=== PATIENT | female | born 1985 | race Caucasian/White ===

== ENCOUNTER 2021-01-09 09:00 | Outpatient (RCR) | payer BC, SELFPAY ==
[2021-01-09 09:16] VITALS: BMI 33.3
[2021-01-09 09:19] VITALS: BMI 33.3
== END 2021-01-19 12:14 | disposition home or self-care (01) ==
LOC: ANHDMC 09:00
PROVIDERS: Visit Provider Student in an Organized Health Care Education/Training Program
DX: O24.319 Unspecified pre-existing diabetes mellitus in pregnancy, unspecified trimester (principal); Z71.89 Other specified counseling; Z71.3 Dietary counseling and surveillance
CPT/HCPCS: 97802; G0108

== ENCOUNTER 2021-02-14 09:00 | Outpatient (RCR) | payer BC, SELFPAY ==
[2021-01-03 16:48] VITALS: BP 119/70; PULSE 91
[2021-01-10 09:28] VITALS: BP 120/71; PULSE 87
[2021-01-24 09:31] VITALS: BP 113/73; PULSE 84
[2021-01-31 09:28] VITALS: BP 109/75; PULSE 78
[2021-02-07 09:34] VITALS: BP 118/76; PULSE 87
[2021-02-14 09:30] VITALS: BP 120/71; PULSE 65
== END 2021-02-26 10:35 | disposition home or self-care (01) ==
LOC: ANHOBOP 09:00
PROVIDERS: Visit Provider Student in an Organized Health Care Education/Training Program
DX: O24.419 Gestational diabetes mellitus in pregnancy, unspecified control (principal); O09.513 Supervision of elderly primigravida, third trimester; Z3A.32 32 weeks gestation of pregnancy; Z3A.33 33 weeks gestation of pregnancy; Z3A.34 34 weeks gestation of pregnancy; Z3A.35 35 weeks gestation of pregnancy; Z3A.36 36 weeks gestation of pregnancy; Z3A.37 37 weeks gestation of pregnancy; Z3A.38 38 weeks gestation of pregnancy
CPT/HCPCS: 59025

== ENCOUNTER 2021-02-21 07:11 | Inpatient (IN) | payer BC, SELFPAY ==
[2021-02-21] VITALS (51 sets, daily range): BP systolic 93–153; BP diastolic 55–92; PULSE 56–171; RESP 16–18; TEMP 36.4–37.1; O2SAT 96–100; BMI 33.0
[2021-02-21 07:56] LABS: Basophils Absolute Auto 0.1 K/mm3 (0.0-0.1); Basophils Percent Auto 0.5 % (0.2-1.2); Eosinophils Absolute Auto 0.1 K/mm3 (0-0.3); Hematocrit 36.2 % (37.0-47.0); Hemoglobin 11.5 g/dL (12.0-15.0); Immature Granulocyte Absolute 0.09 K/mm3 (0.00-0.031); Immature Granulocyte Percent A 0.9 % (0-0.5); Lymphocytes Absolute Auto 3.83 K/mm3 (0.9-3.2); Lymphocytes Percent Auto 38.1 % (18.3-44.2); Mean Corpuscular HGB Conc 31.8 g/dl (32-36); Mean Corpuscular Hemoglobin 26.4 pg (26-34); Mean Platelet Volume 11.9 fl (7.4-10.4); Monocytes Absolute Auto 0.9 K/mm3 (0.1-0.6); Monocytes Percent Auto 9.1 % (2.6-8.5); Neutrophils Absolute Auto 5.1 K/mm3 (1.3-6.7); Neutrophils Percent Auto 50.4 % (45.5-73.1); Platelet Count Result 267 k/mm3 (150-375); Red Blood Count 4.36 M/mm3 (4.2-5.4); Red Cell Distribution Width 16.2 % (11.5-14.5); White Blood Count 10.1 K/mm3 (4.5-10.0)
[2021-02-21] MEDS: LACTATED RINGERS 1,000 ML 125 ML IV CONT ×2 (08:01→11:20)
[2021-02-21] MEDS: OXYTOCIN 30 UNITS/NS 500 ML 30 UNITS/500 ML BAG IV CONT (08:02)
--- NOTE | 2021-02-21 08:07 | LDADM ---
This patient, Briseyda Mendez, was admitted to Labor/Delivery/Recovery 104 on 02/21/21 at 07:11. Plans for labor, pain management and were discussed with patient. Patient/family oriented to hospital policies and general routines including ID bracelet, bed and alarms, visiting hours, pain management, procedures, bathroom and other care routines, personal items, smoking policy, room service/diet and guest tray routines, security routines, and visiting hours. Patient/Family are encouraged to report perceived risks to care and to ask questions if they do not understand what they are told or what they should do. See OBIX for further documentation.
[2021-02-21] MEDS: ONDANSETRON INJ 4 MG/2 ML VIAL IV PUSH (08:18)
[2021-02-21 09:45] LABS: Glucose Point of Care 69 mg/dl (65-105)
--- NOTE | 2021-02-21 10:16 | PM.IMHP ---
H&P: HPI History of Present Illness Date/Time: 02/21/21 10:16 Chief Complaint: intrauterine at term gestational diabetes advanced maternal age Narrative: 35 yo at 39w1d who presents for IOL due to gestational diabetes. Pt diabetes has been well controlled with diet and exercise. She has had routine testing and normal growth US. Review of Systems Cardiovascular: Cardiovascular: Denies chest pain, Denies leg edema, Denies palpitations, Denies dyspnea and Denies dyspnea on exertion Respiratory: Respiratory: Denies cough, Denies dyspnea and Denies dyspnea on exertion Gastrointestinal: Gastrointestinal: Denies abdominal pain, Denies constipation, Denies diarrhea, Denies nausea and Denies vomiting Genitourinary: Genitourinary: Denies hematuria, Denies urinary frequency, Denies dysuria, Denies pelvic pain, Denies urinary incontinence and Denies vaginal discharge Neurologic: Reports system reviewed and no additional complaints, except as documented Psychiatric: Psychiatric: Reports no additional psychiatric complaints Endocrine: Endocrine: Denies palpitations PMFSH Family History Family History (Updated 02/03/21 @ 15:00 by Tri Yeh RN) Father Hypertension Mother Family history of diabetes mellitus in first degree relative Grandparent Family history of diabetes mellitus in first degree relative Cancer S/P CABG x 4 S/P CABG x 2 Hypertension Social History Social History Smoking status: Never smoker Alcohol intake: current Substance use: never Spiritual care concerns: No Meds Home Medications and Allergies Home Medications Medication Instructions Recorded Confirmed Type ferrous sulfate 325 mg PO DAILY 02/03/21 02/03/21 History ondansetron HCl [Zofran] 4 mg PO Q8H PRN 02/03/21 02/03/21 History prenat.vits,shelly,eda-oplp-[id number] 1 tablet PO DAILY 02/03/21 02/03/21 History [ #2] promethazine [Phenergan] 12.5 mg PO Q6H PRN 02/03/21 02/03/21 History Allergies Allergy/AdvReac Type Severity Reaction Status Date / Time No Known Drug Allergies Allergy Verified 08/17/12 19:44 Vital Signs Vital Signs - 24 hr 02/21/21 07:47 02/21/21 08:00 02/21/21 08:30 Pulse Rate 81 81 83 Blood Pressure 117/89 118/85 109/84 02/21/21 09:00 02/21/21 09:41 02/21/21 10:00 Pulse Rate 75 69 60 Blood Pressure 127/85 120/84 128/84 Exam Const: General: no acute distress Eyes: EOM: EOMs intact bilaterally Neck: Neck: supple Thyroid: thyroid normal Chest: Breast/axilla inspection: normal inspection of the breasts Breast/axilla palpation: normal palpation of the breasts, normal palpation of the axillae and no axillary lymphadenopathy Resp: Effort & Inspection: normal respiratory effort Auscultation: clear to auscultation bilaterally Cardio: Rate: regular rate Rhythm: regular rhythm GI: Inspection: non-distended GI Palp: Yes Soft to palpation, No Tenderness to palpation present (GI), No Guarding due to palpation present (GI) and Yes Other GI palpation findings present (Gravid) Auscultation: normal bowel sounds : General: No bladder normal to palpation External Female Exam: normal external appearance OB/external & speculum: external exam normal; No vaginal bleeding Manual OB Exam: dilated 4 cm, effaced 75% and station -2 Skin: General skin exam: normal color and no rashes or lesions noted Neuro: Cognition (Neuro): normal cognition Speech: normal speech Extrem: General: normal to inspection and no edema Psych: Mental Status: mental status grossly normal Affect: normal affect H&P: Results Labs Labs: Short CBC 02/21/21 Range/Units 07:48 WBC 10.1 H (4.5-10.0) K/mm3 Hgb 11.5 L (12.0-15.0) g/dL Hct 36.2 L (37.0-47.0) % Plt Count 267 (150-375) k/mm3 Assessment and Plan Assessment and plan (1) Supervision of high risk , unspecified, third trimester: Code(s): O09.93 - Supervision of high risk ,
[2021-02-21] MEDS: fentaNYL CITRATE INJ (*CRX) 100 MCG/2 ML VIAL IV PUSH (11:03)
--- NOTE | 2021-02-21 11:11 | WPDANESEPP ---
Anes - Eval Pre Procedure Procedure: labor pain management Date/Time: 02/21/21 11:11 Surgeon: levon Preop Diagnosis: pain during labor Pre Op Diagnosis: iol Patient Data Age: 35 Gender: F Height: 1.65 m Weight: 90 kg Last Vital Signs Pulse 71 02/21/21 11:00 BP 143/82 H 02/21/21 11:00 Allergies Allergy/AdvReac Type Severity Reaction Status Date / Time No Known Drug Allergies Allergy Verified 08/17/12 19:44 Home Medications Medication Instructions Recorded Confirmed Type ferrous sulfate 325 mg PO DAILY 02/03/21 02/03/21 History ondansetron HCl [Zofran] 4 mg PO Q8H PRN 02/03/21 02/03/21 History prenat.vits,shelly,oqy-qkrl-yhbvm 1 tablet PO DAILY 02/03/21 02/03/21 History [ #2] promethazine [Phenergan] 12.5 mg PO Q6H PRN 02/03/21 02/03/21 History Laboratory Tests 02/21/21 02/21/21 02/21/21 07:48 07:48 07:48 WBC 10.1 K/mm3 H K/mm3 (4.5-10.0) RBC 4.36 M/mm3 M/mm3 (4.2-5.4) Hgb 11.5 g/dL L g/dL (12.0-15.0) Hct 36.2 % L % (37.0-47.0) MCV 83.0 fl fl (80-100) MCH 26.4 pg pg (26-34) MCHC 31.8 g/dl L g/dl (32-36) RDW 16.2 % H % (11.5-14.5) Plt Count 267 k/mm3 k/mm3 (150-375) MPV 11.9 fl H fl (7.4-10.4) Immature Gran % (Auto) 0.9 % H % (0-0.5) Neut % (Auto) 50.4 % % (45.5-73.1) Lymph % (Auto) 38.1 % % (18.3-44.2) [place] % (Auto) 9.1 % H % (2.6-8.5) Eos % (Auto) 1.0 % % (0-4.4) Baso % (Auto) 0.5 % % (0.2-1.2) Lymph # (Auto) 3.83 K/mm3 H K/mm3 (0.9-3.2) [place] # (Auto) 0.9 K/mm3 H K/mm3 (0.1-0.6) Eos # (Auto) 0.1 K/mm3 K/mm3 (0-0.3) Baso # (Auto) 0.1 K/mm3 K/mm3 (0.0-0.1) Abs Immat Gran (auto) 0.09 K/mm3 H K/mm3 (0.00-0.031) Absolute Neuts (auto) 5.1 K/mm3 K/mm3 (1.3-6.7) Absolute Nucleated RBC 0.0 K/mm3 K/mm3 (0.0-0.012) Nucleated RBC % 0.0 % % (0.0-0.2) POC Capillary Glucose RPR Pending Blood Type B Positive Antibody Screen Negative 02/21/21 09:42 WBC RBC Hgb Hct MCV MCH MCHC RDW Plt Count MPV Immature Gran % (Auto) Neut % (Auto) Lymph % (Auto) [place] % (Auto) Eos % (Auto) Baso % (Auto) Lymph # (Auto) [place] # (Auto) Eos # (Auto) Baso # (Auto) Abs Immat Gran (auto) Absolute Neuts (auto) Absolute Nucleated RBC Nucleated RBC % POC Capillary Glucose 69 mg/dl mg/dl (65-105) RPR Blood Type Antibody Screen : gestational age (edc 02/27/21) Patient hx anesthesia problems: none Family hx anesthesia problems: none Results Review: All pre-operative results and documents have been reviewed as part of the pre-operative evaluation. [facility] Family History Family History Father Hypertension Mother Family history of diabetes mellitus in first degree relative Grandparent Family history of diabetes mellitus in first degree relative Cancer S/P CABG x 4 S/P CABG x 2 Hypertension Social History Social History Smoking status: Never smoker Alcohol intake: current Substance use: never Spiritual care concerns: No Exam Day of Procedure 02/21/21 11:11 Patient weight: obese Neurological: alert and oriented
--- NOTE | 2021-02-21 12:28 | PM.OBPRVD ---
OB - Delivery Note Procedure Procedure: FHT were noted to be in the 70-80s during pushing. FHT remained bradycardic. The skull was partially delivered through the introitus. The [place] vacuum was applied to the skull, 2 cm anterior to the posterior fontanelle. Gentle traction was applied with the next contraction. The was delivered with one contractions. The vacuum was removed on the perineum. The fetus was delivered atraumatically and placed on the maternal abdomen. The fetus was vigorous with good cry with minimal stimulation. The cord was clamped and cut after 1 minute of life. The cord was double clamped and cut and a segment of cord was collected for cord gases. Cord blood was collected for blood type and Coomb's testing. The placenta delivered spontaneously and was noted to be intact. The perineum was inspected and there was a 1st degree perineal laceration. The laceration was repaired with 3-0 vicryl in the usual fashion. The uterus was firm and good hemostasis was noted. The patient and fetus were stable in the delivery room. events: Gestational Diabetes Intrapartal events: Ineffective Pushing Induction method: per pitocin protocol Delivery augmentation: rupture of membranes Delivery monitor: external FHT Route of delivery: vacuum extraction Indication for instrumentation: nonreassuring FHR tracing Episiotomy description: None Laceration Description: Periurethral and Perineal - 1st Degree Delivery repair: vicryl Specimen: No Quantitative Blood Loss (ml): 150 Anesthesia type: Epidural Disposition: floor () Complications: No immediate complications Baby Date of : 02/21/21 Time of : 12:17 Weeks of gestation at delivery: 39 Infant gender: Female Weight (pounds): 7 Weight (ounces): 8 presentation: vertex position: Right Occiput Anterior Placenta delivery description: Spontaneous cord vessel description: 3 Vessels score one minute: 8 score five minutes: 9
[2021-02-21] MEDS: OXYTOCIN 30 UNITS/NS 500 ML 30 UNITS/500 ML BAG 125 UNITS IV CONT (13:16)
[2021-02-21] MEDS: WITCH HAZEL 40 PADS 1 PAD TOPICAL (15:50)
[2021-02-21] MEDS: BENZOCAINE 20% AER SPR (*SP) 56 GM CAN 1 SPRAY TOPICAL (15:50)
--- NOTE | 2021-02-21 16:07 | OBPPTRN ---
Patient transferred to post room # 281 via wheelchair accompanied by spouse and . PT received instructions per one to one and mom baby care guide and demonstrations per this shift. PT and spouse both recipients of such instructions and no barriers to learning identified at this time. Support person present. Oriented to unit, room, information board, rooming in, admission packet and security measures. Patient verbalizes understanding.
[2021-02-22] MEDS: IBUPROFEN 600 MG TABLET PO ×3 (04:00→23:20)
[2021-02-22 05:45] LABS: Hematocrit 32.9 % (37.0-47.0); Hemoglobin 10.3 g/dL (12.0-15.0)
[2021-02-22 06:22] LABS: Rapid Plasma Reagin Non-Reactive (NonReactive)
--- NOTE | 2021-02-22 07:33 | PM.OBPNVD ---
OB - PN: Subj Subjective Date/time seen: 02/22/21 07:33 Patient comments: no complaints, pain well controlled and tolerating diet [place] feeding status: exclusively breast feeding Narrative: patient doing well this AM. No complaints. Pain is well controlled. She reports minimal bleeding. She is ambulating and voiding without difficulty. She is tolerating PO. She denies N/V, fever, chills. OB - PN: Obj Data Labs CBC & Chem 7: 02/22/21 03:52 Labs: Laboratory Results - last 24 hr 02/21/21 02/21/21 02/21/21 07:48 07:48 07:48 WBC 10.1 H RBC 4.36 Hgb 11.5 L Hct 36.2 L MCV 83.0 MCH 26.4 MCHC 31.8 L RDW 16.2 H Plt Count 267 MPV 11.9 H Immature Gran % (Auto) 0.9 H Neut % (Auto) 50.4 Lymph % (Auto) 38.1 [place] % (Auto) 9.1 H Eos % (Auto) 1.0 Baso % (Auto) 0.5 Lymph # (Auto) 3.83 H [place] # (Auto) 0.9 H Eos # (Auto) 0.1 Baso # (Auto) 0.1 Abs Immat Gran (auto) 0.09 H Absolute Neuts (auto) 5.1 Absolute Nucleated RBC 0.0 Nucleated RBC % 0.0 POC Capillary Glucose RPR Non-reactive Blood Type B Positive Antibody Screen Negative 02/21/21 02/22/21 09:42 03:52 WBC RBC Hgb 10.3 L Hct 32.9 L MCV MCH MCHC RDW Plt Count MPV Immature Gran % (Auto) Neut % (Auto) Lymph % (Auto) [place] % (Auto) Eos % (Auto) Baso % (Auto) Lymph # (Auto) [place] # (Auto) Eos # (Auto) Baso # (Auto) Abs Immat Gran (auto) Absolute Neuts (auto) Absolute Nucleated RBC Nucleated RBC % POC Capillary Glucose 69 RPR Blood Type Antibody Screen OB - PN A/P Plan day: 1 Plan: routine care Comments: patient doing well H/H stable continue routine care Time Spent With Patient Time: Total time spent is greater than 50% in coordination of care (as documented) at patient's floor/unit and/or counseling patient: Time with patient: less than 15 minutes Review of Systems Review of Systems: All systems reviewed & are unremarkable except as noted in HPI and below Exam Const: General: comfortable and no acute distress Resp: Effort & Inspection: normal respiratory effort Cardio: Rate: regular rate GI: GI Palp: Yes Soft to palpation and No Tenderness to palpation present (GI) Auscultation: normal bowel sounds Other: fundus firm and below umbilicus. Psych: Affect: normal affect
--- NOTE | 2021-02-22 08:00 | PC.NURSE ---
PT introductions made and plan of care discussed per post , pain management, breast feeding, daily care activities. PT received such instructions per one to one discussion, mom baby care guide and demonstrations. Pt and spouse both recipient of such instructions and no barriers to learning identified. PT verbalized understanding.
[2021-02-22 08:05] VITALS: BP 121/73; PULSE 75; RESP 18; TEMP 37.2; O2SAT 99
--- NOTE | 2021-02-22 10:05 | PC.NURSE ---
Mother called out for assist with feeding, reporting tenderness during entire feeding. is able to freely thrust tongue past gum ridge and flange both lips. Skin is intact on both nipples, slight redness and no bruising noted. Reviewed feeding cues, frequencies, duration of feedings, feeding elimination flow sheet, and signs of adequate intake. Mother is attempting in cradle. Demonstrated stimulation techniques to wake for feeding. Assisted with infant to breast. Reviewed positioning/alignment in cross cradle, holding breast in ?U? hold and guided asymmetrical latch on. Reviewed rational for each. able to latch correctly within a few attempts. nursed eagerly with steady draws and occasional swallowing noted, some pausing noted. Reviewed signs of a correct latch, effective nursing and suck swallow ratio. Suggested mother stimulate while feeding to increase stimulation for milk supply, for increased intake and to assist with maintaining deep latch. would slip to shallow latch causing tenderness. Demonstrated how to adjust latch more deeply while feeding if needed. Mother reports she can feel the difference in latch with less tenderness. Nipple care reviewed of lanolin after feedings, warm compresses as needed, gel pads provided and reviewed care and cleaning. Instructed mother to call out for RN assistance if she is unable to latch infant for feeding or she has discomfort with nursing. Instructed feeding should be initiated three hours from start of last feeding or if feeding cues are noted before. Mother voiced understanding of information shared.
[2021-02-22 11:30] VITALS: PULSE 75; RESP 18; O2SAT 99
[2021-02-22] MEDS: ACETAMINOPHEN 325 MG TABLET 650 MG PO ×2 (11:53→23:20)
[2021-02-22] MEDS: MULTIVIT/MIN/PREN/FOL AC/IRON TABLET 1 TAB PO (11:53)
[2021-02-22] MEDS: DOCUSATE SODIUM 100 MG CAPSULE PO (11:53)
[2021-02-22] MEDS: LANOLIN (LANSINOH) 7.5 GM CREAM 1 APPLIC TOPICAL (11:55)
[2021-02-22 12:15] VITALS: BP 116/71; PULSE 66; RESP 16; TEMP 36.6; O2SAT 99
--- NOTE | 2021-02-22 12:47 | PM.OBDSVD ---
DS: Admitting Diagnosis Discharge Date 02/23/21 Admitting Diagnosis intrauterine at term gestational diabetes obesity OB - DS: Summary OB Procedures : None OB Procedures Intrapartum: Spontaneous Vag Delivery OB Procedures: : None Status at Discharge Functional status at discharge: independent ambulation Overall status at discharge: patient is back to baseline Time Spent with Patient Time attestation: Total time spent providing and/or coordinating discharge services: Time spent: Less than 30 minutes Exam Const: General: comfortable and no acute distress Resp: Effort & Inspection: normal respiratory effort Auscultation: clear to auscultation bilaterally Cardio: Rate: regular rate GI: GI Palp: Yes Soft to palpation Auscultation: normal bowel sounds Other: Fundus firm below umbilicus Psych: Appearance: grossly normal Mental Status: mental status grossly normal Affect: normal affect DS: Data Data Completed and Pending Labs on day of discharge: Labs from last 24 hours 02/22/21 02/21/21 03:52 07:48 Hgb 10.3 L Hct 32.9 L RPR Non-reactive Discharge Plan Discharge Attending physician on discharge: Thee Delgadillo Discharging Clinician: Thee Delgadillo Patient Disposition: Home, Self-Care Activity: may shower, as tolerated and pelvic rest Diet: regular Wound Care Instructions: follow printed instructions Discharge Instructions: Education: Mom and Baby Guide Given to: Mother Follow-Up: Call your delivering provider's office for an appointment to be seen in: 6 Week Mom and baby should come to the [facility] for the follow-up appointment. Appointment Date/Time: Sat. February 24, 2021 at 8:00 am Call [phone] if you are unable to keep your appointment time. BREAST CARE: * Wear a snug supportive bra. * For engorgement discomfort: Breast Feeding: * Apply warm moist washcloths * Express milk as needed to relieve engorgement * Wear loose clothing Bottle Feeding: * May apply ice packs * For sore nipples: * Identify correct latch-on * Apply warm moist washcloths before and after nursing * Air dry nipples after nursing * May apply Lansinoh cream to nipples EPISIOTOMY/PERINEAL CARE: * Until bleeding stops, use your augie bottle after urinating * Change your pad frequently throughout the day * You may take sitz baths several times a day (fill your bathtub with warm water and soak for 20 minutes.) Do NOT bathe in the water * No tub baths until seen by your physician - You may shower ACTIVITY: * Rest as much as possible. * Do not exercise or lift anything heavier than your baby (such as laundry or other children.) * Avoid stairs or driving as much as possible. * Do not put anything into the vagina. No douching, tampons, or sexual activity until seen by physician. NOTIFY PHYSICIAN IF YOU HAVE ANY QUESTIONS OR IF ANY OF THE FOLLOWING SYMPTOMS OCCUR: * If your episiotomy or incision becomes red, swollen, or more painful than what you have experienced in the hospital. * If your vaginal bleeding becomes foul smelling. * If your vaginal bleeding becomes more heavy than a period or if your bleeding changes from pink to bright red. However, you may pass an occasional walnut-sized clot once or twice for the first week . * If you experience a sharp, shooting pain in you calves. * If you discover a hard, reddened area on your breast or if you experience flu-like symptoms. DIET: * Eat regular, well-balanced meals. * Drink plenty of fluids daily. If , drink to thirst. Per Dr. Rita Ruiz, call or return for temperature >100.4, bleeding >2 pads/hr for 2 hrs, pain not controlled with medications, signs/symptoms of mastitis Patient Instructions: Vaginal Delivery (DC) Follow-up/Referrals: Leona
--- NOTE | 2021-02-22 13:20 | PCDIET ---
Mother called out for assist with feeding, reporting tenderness. Reviewed feeding cues, frequencies, duration of feedings, feeding elimination flow sheet, and signs of adequate intake. Demonstrated stimulation techniques to wake infant for feeding. Assisted with to breast. Reviewed positioning/alignment in cross cradle, holding breast in ?U? hold and guided asymmetrical latch on. Reviewed rational for each. Discussed to roll out at nipple before attempting to latch. Right nipple/areola is soft and pliable, left is more firm, discussed why this may impact latch, and how rolling the nipple may help with deeper latch. Infant able to latch correctly within a few attempts. Infant nursed eagerly with steady draws and occasional swallowing noted, some pausing noted. Reviewed signs of a correct latch, effective nursing and suck swallow ratio. Suggested mother stimulate while feeding to increase stimulation for milk supply, for increased intake and to assist with maintaining deep latch. would slip to shallow latch causing tenderness. Demonstrated how to adjust latch more deeply while feeding if needed. Mother reports she can feel the difference in latch with less tenderness. Nipple care reviewed of lanolin after feedings, warm compresses as needed. Instructed mother to call out for RN assistance if she is unable to latch infant for feeding or she has discomfort with nursing. Instructed feeding should be initiated three hours from start of last feeding or if feeding cues are noted before. Mother voiced understanding of information shared.
[2021-02-22 19:24] VITALS: BP 117/69; PULSE 72; RESP 16; TEMP 36.7
[2021-02-23] MEDS: MULTIVIT/MIN/PREN/FOL AC/IRON TABLET 1 TAB PO (07:18)
[2021-02-23] MEDS: IBUPROFEN 600 MG TABLET PO (07:18)
[2021-02-23 08:00] VITALS: BP 125/71; PULSE 78; RESP 16; TEMP 37.1; O2SAT 100
--- NOTE | 2021-02-23 09:01 | PM.OBPNVD ---
OB - PN: Subj Subjective Date/time seen: 02/23/21 09:01 No complaints OB - PN: Obj Data Labs CBC & Chem 7: 02/22/21 03:52 OB - PN A/P Plan day: 2 Plan: routine care, discharge home and follow up 6 weeks Time Spent With Patient Time: Total time spent is greater than 50% in coordination of care (as documented) at patient's floor/unit and/or counseling patient: Time with patient: less than 15 minutes Review of Systems Review of Systems: All systems reviewed & are unremarkable except as noted in HPI and below Exam Const: General: no acute distress Eyes: General: appearance normal, both eyes and all related structures Neck: Neck: supple and no JVD Thyroid: thyroid normal Resp: Effort & Inspection: normal respiratory effort Auscultation: clear to auscultation bilaterally Cardio: Rate: regular rate Rhythm: regular rhythm GI: Inspection: non-distended GI Palp: Yes Soft to palpation, No Tenderness to palpation present (GI) and No Guarding due to palpation present (GI) Auscultation: normal bowel sounds : General: Yes bladder normal to palpation External Female Exam: normal external appearance Speculum Exam - Vagina: normal vaginal discharge and No vaginal bleeding Speculum Exam - Cervix: nontender Bimanual exam- vagina & uterus: bladder normal to palpation and No Cervical tenderness present OB/external & speculum: No vaginal bleeding Skin: General skin exam: no rashes or lesions noted Extrem: General: normal to inspection and no edema Psych: Mental Status: mental status grossly normal Affect: normal affect
--- NOTE | 2021-02-23 10:35 | PC.NURSE ---
Consult with pt., observed mother is able to independently latch with appropriate positioning/alignment. Infant eagerly latches on first attempt with long rhythmical draws and frequent swallowing noted. She denies any nipple discomfort, is feeding as required and waking infant to feed if needed. Infant has had at several effective feedings in the past 24 hours, and is currently meeting outcomes for weight, output, jaundice and feeding frequencies. Mother chooses to supplement after , due to tenderness at times and states she plans to breast and bottle feed. Reviewed stimulation and milk supply, suggesting mother supplement after to stimulate supply. Mother states she feels confident to continue effective /supplementing at home. Reviewed transition to breast milk, signs of adequate intake, and engorgement/relief. Instructed to call ICP if intake/output less than required. Reviewed regular medications mother is taking. Information provided per Christine. Reviewed community resources on the [facility] website and in the Mom/Baby guide. Information on outpatient services provided. Mother has no further questions at this time. Instructed feeding should be initiated three hours from start of last feeding or if feeding cues are noted before until seen by ICP. Mother voiced understanding of information shared.
[2021-02-24 08:47] VITALS: BP 129/76; PULSE 74; RESP 20; TEMP 36.7; O2SAT 100
== END 2021-02-23 13:15 | disposition home or self-care (01) | DRG 807 ==
LOC: ANHOB2 02-23 10:31 → ANHLDR 02-23 15:39 → ANHOB2 02-23 15:39
PROVIDERS: Admitting Provider Student in an Organized Health Care Education/Training Program; Visit Provider Obstetrics & Gynecology
DX: O99.214 Obesity complicating childbirth (principal); Z37.0 Single live birth; E66.9 Obesity, unspecified; O76 Abnormality in fetal heart rate and rhythm complicating labor and delivery; O70.0 First degree perineal laceration during delivery; O71.82 Other specified trauma to perineum and vulva; O77.0 Labor and delivery complicated by meconium in amniotic fluid; O24.420 Gestational diabetes mellitus in childbirth, diet controlled; Z3A.39 39 weeks gestation of pregnancy
CPT/HCPCS: 36415; 82948; 85014; 85018; 85025; 86592; 86850; 86900; 86901; A9270; J2405; J2590; J2795; J3010; J7120